=== PATIENT | female | born 1940 | race Caucasian/White ===

== ENCOUNTER → 2017-09-30 | Outpatient (CLI) | payer MEDICARE ==
[~2017-09-30] MED LIST: APIX5TAB PO; CHOL2000 PO; DIGO125T PO; DOCU100T3 PO; FURO-92 PO; LOSA100T6 PO; LOVA20TA2 PO; METO2.5T PO; METO25TA35 PO; METO50TA82 PO; POTA20TA6 PO; REGADENOSON 0.4 MG/5 ML SYRINGE ONE; ROPI0.5T2 PO
== END | disposition home or self-care (01) ==
LOC: CFH 08:09
PROVIDERS: ATTEND Internal Medicine Cardiovascular Disease
DX: I10 Essential (primary) hypertension (principal); Z95.2 Presence of prosthetic heart valve
CPT/HCPCS: 78452; 93017; A9502; J2785

== ENCOUNTER 2017-11-25 08:05 | Observation (INO) | payer MEDICARE, OTHER ==
[2017-11-24 12:46] VITALS: BP 140/81
[2017-11-24 13:26] LABS: BASOPHILS # (AUTO) 0.04 x10^3/uL (0-0.1); BASOPHILS % (AUTO) 1 % (0-1); EOSINOPHILS % (AUTO) 2 % (1-7); LYMPHOCYTES # (AUTO) 0.87 x10^3/uL (1-3.4); LYMPHOCYTES % (AUTO) 17 % (22-44); MD NO; MEAN CORPUSCULAR HEMOGLOBIN 28.4 pg (27.0-34.8); MEAN CORPUSCULAR HGB CONC 32.3 g/dL (32.4-35.8); MEAN CORPUSCULAR VOLUME 87.9 fL (80-100); MEAN PLATELET VOLUME 8.8 fL (7.4-10.4); MONOCYTES % (AUTO) 10 % (2-9); NEUTROPHILS % (AUTO) 71 % (42-75); PLATELET COUNT 227 x10^3/uL (130-400); RED BLOOD COUNT 4.54 x10^6/uL (3.82-5.3); RED CELL DISTRIBUTION WIDTH 17.7 % (9.6-15.2)
[2017-11-24 13:34] LABS: ALANINE AMINOTRANSFERASE 14 U/L (12-78); ALBUMIN 3.3 g/dL (3.4-5.0); ANION GAP 9 mmol/L (5-15); CALCIUM 8.7 mg/dL (8.5-10.1); CHLORIDE 104 mmol/L (98-107); CREATININE 1.43 mg/dL (0.55-1.02)
[2017-11-24 13:37] LABS: ALKALINE PHOSPHATASE 156 U/L (45-117); BILIRUBIN,TOTAL 1.7 mg/dL (0.2-1.0); TOTAL PROTEIN 7.3 g/dL (6.4-8.2)
[~2017-11-25] VITALS: Ht 170.2 cm; Wt 110.8 kg
[~2017-11-25 08:05] MED LIST changes: -REGADENOSON 0.4 MG/5 ML SYRINGE ONE
[2017-11-25] MEDS ORDERED: SODIUM CHLORIDE 0.9% 1,000 ML IV SCH ×2 (09:00)
[2017-11-25] MEDS ORDERED: MIDAZOLAM 1 MG/ML, 2ML ONE (11:05)
[2017-11-25] MEDS ORDERED: PROPOFOL 10 MG/ML, 20ML ONE (11:20)
[2017-11-25] MEDS ORDERED: SUCCINYLCHOLINE 20 MG/ML, 10ML ONE (11:20)
[2017-11-25] MEDS ORDERED: ONDANSETRON 2MG/ML, 2ML ONE (11:20)
[2017-11-25] MEDS ORDERED: DEXAMETHASONE 4 MG/ML, 1ML ONE (11:20)
[2017-11-25] MEDS ORDERED: LIDOCAINE 2%, 20ML ONE (11:41)
[2017-11-25] MEDS ORDERED: CEFAZOLIN 1,000 MG ONE (11:42)
[2017-11-25] MEDS ORDERED: ZOLPIDEM 5MG TABLET PO PRN (12:30)
[2017-11-25] MEDS ORDERED: VANCOMYCIN PMX 1GM/200ML 200 ML IVPB ONE (13:00)
[2017-11-25] MEDS ORDERED: ONDANSETRON 2MG/ML, 2ML IVPush PRN (13:30)
[2017-11-25] MEDS ORDERED: ACETAMINOPHEN 325 MG TABLET PO PRN (13:30)
[2017-11-25] MEDS ORDERED: PROMETHAZINE 12.5 MG SUPP PR PRN (13:30)
[2017-11-25] MEDS ORDERED: MIDAZOLAM 1 MG/ML, 2ML IV PRN (13:30)
[2017-11-25] MEDS ORDERED: PROMETHAZINE 25 MG/ML, 1ML IV PRN (13:30)
[2017-11-25] MEDS ORDERED: FENTANYL PF 100 MCG/2ML ONE (13:48)
[2017-11-25] MEDS: ACETAMINOPHEN 325 MG TABLET PO PRN ×2 (16:28→21:15)
[2017-11-25] MEDS ORDERED: DIPH25CA61 PO (17:23)
[2017-11-25 18:50] VITALS: BP 130/89
[2017-11-25] MEDS: SODIUM CHLORIDE FLUSH 10ML SYR IVF SCH (21:16)
[2017-11-25] MEDS ORDERED: ROPINIROLE 0.5MG TABLET PO SCH (22:00)
[2017-11-25] MEDS: POTASSIUM CHLORIDE 20 MEQ TAB.ER.PRT PO SCH (22:00)
[2017-11-25] MEDS ORDERED: DIPHENHYDRAMINE 25 MG CAPSULE PO SCH (22:00)
[2017-11-25] MEDS ORDERED: LOVASTATIN 20 MG TABLET PO SCH (22:00)
[2017-11-25 23:53] VITALS: BP 121/71
[2017-11-25] MEDS: METOPROLOL TARTRATE 25 MG TABLET PO SCH (23:56)
[2017-11-26 00:55] VITALS: BP 108/72
[2017-11-26 05:43] VITALS: BP 107/71
[2017-11-26] MEDS: METOPROLOL TARTRATE 25 MG TABLET PO SCH (05:45)
[2017-11-26] MEDS ORDERED: METOLAZONE 2.5 MG TABLET PO SCH (07:30)
[2017-11-26 08:00] VITALS: BP 113/78
[2017-11-26] MEDS: POTASSIUM CHLORIDE 20 MEQ TAB.ER.PRT PO SCH (08:12)
[2017-11-26] MEDS: SODIUM CHLORIDE FLUSH 10ML SYR IVF SCH (08:13)
[2017-11-26] MEDS ORDERED: CHOLECALCIFEROL 1,000 UNIT TABLET PO SCH (09:00)
[2017-11-26] MEDS ORDERED: FUROSEMIDE 40 MG TABLET PO SCH (09:00)
[2017-11-26] MEDS ORDERED: DOCUSATE 100 MG CAPSULE PO SCH (09:00)
[2017-11-26] MEDS ORDERED: LOSARTAN 50MG TABLET PO SCH (09:00)
[2017-11-26] MEDS ORDERED: APIXABAN 5 MG TABLET PO SCH (09:00)
[2017-11-26] MEDS ORDERED: ACET325T14 PO (09:31)
== END 2017-11-26 11:29 | disposition home or self-care (01) ==
LOC: CACL 08:05 → 5SO 16:21 → CACL 23:55
PROVIDERS: ADMIT Internal Medicine Cardiovascular Disease; ATTEND Internal Medicine Cardiovascular Disease
DX: I44.2 Atrioventricular block, complete (principal); I49.5 Sick sinus syndrome; I48.91 Unspecified atrial fibrillation
CPT/HCPCS: 33207; 36415; 71045; 71046; 80053; 85025; 93650; 96365; C1766; C1779; C1786; C1894; C2630; G0378; J0330; J0690; J1100; J2250; J2405; J2704; J3370; J3490; Q0163

== ENCOUNTER → 2018-08-31 | Outpatient (CLI) | payer MEDICARE, OTHER ==
[~2018-08-31] MED LIST changes: +ACET325T14 PO; +DIPH25CA61 PO; +GUAI600T31 PO; -LOSA100T6 PO; +LOSA100T7 PO; +PRED20TA PO
== END | disposition home or self-care (01) ==
LOC: CVU 09:40
PROVIDERS: ATTEND Internal Medicine Cardiovascular Disease
DX: I83.93 Asymptomatic varicose veins of bilateral lower extremities (principal); R60.9 Edema, unspecified
CPT/HCPCS: 93970

== ENCOUNTER → 2019-03-20 | Outpatient (CLI) | payer MEDICARE, OTHER ==
[~2019-03-20] MED LIST changes: +LOSA100T14 PO; -LOSA100T7 PO
== END | disposition home or self-care (01) ==
LOC: CFH 15:18
PROVIDERS: ATTEND Internal Medicine Cardiovascular Disease
DX: I35.8 Other nonrheumatic aortic valve disorders (principal); I11.9 Hypertensive heart disease without heart failure; E78.5 Hyperlipidemia, unspecified; R06.02 Shortness of breath; Z79.01 Long term (current) use of anticoagulants; Z95.2 Presence of prosthetic heart valve
CPT/HCPCS: 93306